=== PATIENT | female | born 1950 | race Caucasian/White ===

== ENCOUNTER → 2022-03-25 | Outpatient (CLI) | payer MEDICARE ==
--- NOTE | 2022-03-25 17:15 | Diagnostic Imaging Report ---
CLINICAL HISTORY: Right hand pain. [place]-neck deformities. COMPARISON: None. TECHNIQUE: 4 views of the right hand. FINDINGS: There is no acute fracture or dislocation of the right hand. There is hyperextension of the right 4th PIP joint with essentially normal alignment of the right 4th DIP joint. Ossified focus is seen along the ulnar aspect of the right 4th PIP joint which may represent old injury. No suspicious focal osseous lesions. IMPRESSION: 1. No acute fracture or dislocation in the right hand. 2. Hyperextended right 4th PIP joint with normal alignment of the right 4th DIP joint. Likely old injury is seen along the ulnar aspect of the right 4th PIP joint. Dictated by: Dictated on workstation # [id number]
== END ==
LOC: RAD FS 10:47
PROVIDERS: ATTEND Nurse Practitioner
DX: M20.031 Swan-neck deformity of right finger(s) (principal); M20.011 Mallet finger of right finger(s)
CPT/HCPCS: 73140

== ENCOUNTER → 2022-04-15 | Outpatient (CLI) | payer MEDICARE ==
--- NOTE | 2022-04-15 18:06 | Diagnostic Imaging Report ---
EXAMINATION: Right shoulder radiographs, 3 views. COMPARISON: None. HISTORY: 72-year-old female, right shoulder pain. FINDINGS: There is widening of the acromioclavicular joint. There are mild acromioclavicular degenerative changes with 2 mm undersurface osteophytes. The humeral head is normally positioned relative to the glenoid. The glenohumeral joint space is well-maintained. There is no identified acute fracture. IMPRESSION: 1. Mild widening of the acromioclavicular joint which may reflect acromioclavicular joint separation injury of uncertain exact age. 2. Mild acromioclavicular degenerative changes with 2 mm undersurface osteophytes. 3. Unremarkable glenohumeral joint assessment. 4. No acute fracture or other acute osseous abnormality. Dictated by: Dictated on workstation # [id number]
== END ==
LOC: RAD FS 14:06
PROVIDERS: ATTEND Physician Assistant
DX: M19.011 Primary osteoarthritis, right shoulder (principal); M25.711 Osteophyte, right shoulder
CPT/HCPCS: 73030

== ENCOUNTER → 2022-04-29 | Outpatient (CLI) | payer MEDICARE | END | disposition home or self-care (01) | LOC: PREOP 05:31 | PROVIDERS: ATTEND Internal Medicine | DX: Z01.818 Encounter for other preprocedural examination (principal) ==

== ENCOUNTER → 2022-05-10 | Outpatient (CLI) | payer MEDICARE ==
--- NOTE | 2022-05-10 18:34 | Diagnostic Imaging Report ---
INDICATION: [place] finger COMPARISON: 03/25/2022 TECHNIQUE: 4 radiographs of the right hand, particularly the right 4th finger dated 05/10/2022. FINDINGS: Postsurgical changes with screw noted within the 2nd digit distal phalanx. No acute fracture or dislocation. No destructive osseous process. Scattered osteophyte formation is identified, including dorsally at the 4th DIP joint. No suspicious radiopaque foreign body. IMPRESSION: No acute osseous abnormality with mild scattered degenerative changes, as described above. Dictated by: Dictated on workstation # [id number]
== END ==
LOC: RAD FS 13:04
PROVIDERS: ATTEND Nurse Practitioner
DX: M19.041 Primary osteoarthritis, right hand (principal); M20.011 Mallet finger of right finger(s)
CPT/HCPCS: 73140